=== PATIENT | male | born 1995 | race Two or more races ===

== ENCOUNTER 2022-06-26 01:01 | Emergency (ER) | payer OTHER ==
[~2022-06-26] VITALS: Wt 86.6 kg
== END 2022-06-26 03:15 | disposition home or self-care (01) ==
LOC: ER 01:01
DX: S05.8X1A Other injuries of right eye and orbit, initial encounter (principal); X58.XXXA Exposure to other specified factors, initial encounter; Y93.9 Activity, unspecified; Y92.9 Unspecified place or not applicable; Y99.9 Unspecified external cause status

== ENCOUNTER 2022-11-24 14:13 | Emergency (ER) | payer OTHER ==
[~2022-11-24] VITALS: Ht 172.7 cm; Wt 88.5 kg
== END 2022-11-24 16:55 | disposition home or self-care (01) ==
LOC: ER 14:13
DX: J02.9 Acute pharyngitis, unspecified (principal)